=== PATIENT | female | born 2000 | race Caucasian/White ===

== ENCOUNTER 2023-04-09 15:06 | Emergency (ER) | payer MEDICAID, SELFPAY ==
[2023-04-09 15:08] VITALS: BP 90/51; PULSE 70; RESP 20; TEMP 36.2; O2SAT 93; BMI 33.9
--- NOTE | 2023-04-09 15:10 | ED.GENADULT ---
HPI - General Adult General Chief complaint: Chest Pain Stated complaint: chest pain,sob ,33 wks Time Seen by Provider: 04/09/23 16:03 Related Data Allergies Allergy/AdvReac Type Severity Reaction Status Date / Time No Known Allergies Allergy Verified 04/09/23 15:14 [facility] Social History Social History Advance Directives: No Advance Directives Information Provided: No Physical Exam ED Vital Signs: Vital Signs - 24 hr 04/09/23 15:08 Temperature 97.2 F Pulse Rate 70 Respiratory Rate 20 Blood Pressure 90/51 L Pulse Oximetry 93 Oxygen Delivery Method Room Air BMI result Body Mass Index 33.9 Course Course Course Narrative: RME- 22 year old female presents for evaluation of back pain and chest pain. She is approximately 33 weeks . Pain started last night. OB care is at [facility]. Reevaluation(s) Reevaluation #1: Presented to the patient's room multiple times however the patient was not in the room. Discussed with the charge nurse who informed me that the patient has left without completing treatment. Time: 16:45 Discharge Plan Discharge Clinical Impression: Qualifiers: Weeks of gestation: unspecified Qualified Code(s): Z34.90 - Encounter for supervision of normal , unspecified, unspecified trimester Patient Disposition: Left W/O Completing Treatment Discharge Date/Time: 04/09/23 16:39
--- NOTE | 2023-04-09 15:15 | ECG_ITS ---
Test Reason : CHEST PAIN Blood Pressure : / mmHG Vent. Rate : 070 BPM Atrial Rate : 070 BPM P-R Int : 138 ms QRS Dur : 086 ms QT Int : 388 ms P-R-T Axes : 051 -13 012 degrees QTc Int : 419 ms Normal sinus rhythm with sinus arrhythmia Minimal voltage criteria for LVH, may be normal variant ( R in aVL ) Borderline ECG No previous ECGs available Referred By: Jared Hebert Electronically Signed By:MATEO POWERS
== END 2023-04-09 16:39 | disposition left against medical advice (07) ==
PROVIDERS: Emergency Provider Emergency Medicine
DX: O26.893 Other specified pregnancy related conditions, third trimester (principal); R07.9 Chest pain, unspecified; R06.02 Shortness of breath; Z3A.33 33 weeks gestation of pregnancy
CPT/HCPCS: 93005; 99283

== ENCOUNTER 2023-04-09 18:38 | Emergency (ER) | payer MEDICAID, SELFPAY ==
[2023-04-09 18:42] VITALS: BP 111/69; PULSE 91; RESP 16; TEMP 36.6; O2SAT 97; BMI 32.4
--- NOTE | 2023-04-09 18:43 | ED_ITS ---
HPI - General Adult General Chief complaint: Chest Pain Stated complaint: abd back pain 33 wks. ..here today Time Seen by Provider: 04/09/23 19:16 Source: patient Limitations: no limitations History of Present Illness HPI narrative: 22-year-old female, , 33 weeks gestation, with an EDC of May 27, presents for evaluation of approximately 24 hours of back and epigastric pain. Patient states symptoms have been relatively constant and she had several episodes of nausea and vomiting earlier this afternoon. She has tried a warm bath as well as Tylenol without any relief. She reports positive movement. She denies any abdominal pain or cramping. She denies any fevers or chills. No vaginal discharge bleeding or spotting. No urinary symptoms. Of note, the patient actually presents the emergency department earlier today however left as she did not wish to wait. She ultimately presented to be stay but did not want to wait there any longer and therefore returned to the whole emergency department. She denies any trauma. Patient is followed at [facility] for [employer]. Patient also reports that she has a ?marginal placenta?. Related Data Allergies Allergy/AdvReac Type Severity Reaction Status Date / Time No Known Allergies Allergy Verified 04/09/23 15:14 Review of Systems 2 Constitutional: Constitutional: Denies chills, Denies fever(s) and Denies headache(s) Eyes: Eyes: Denies change in vision and Denies other (No redness.) ENT: Denies headache(s), Denies nasal congestion, Denies nasal discharge, Denies neck pain and Denies sore throat Cardiovascular: Cardiovascular: Denies chest pain, Denies palpitations, Denies dyspnea, Denies dyspnea on exertion and Denies orthopnea Respiratory: Respiratory: Denies cough, Denies dyspnea and Denies dyspnea on exertion Gastrointestinal: Gastrointestinal: Denies abdominal pain, Denies melena, Denies hematochezia, Denies diarrhea, Reports nausea and Reports vomiting Genitourinary: Genitourinary: Denies dysuria and Denies urinary urgency Musculoskeletal: Musculoskeletal: Denies back pain, Denies muscle weakness, Denies neck pain and Denies numbness Integumentary/Breasts: Skin/Breast: Denies rash Neurologic: Denies headache(s), Denies focal weakness and Denies numbness Psychiatric: Psychiatric: Denies depression Endocrine: Endocrine: Denies palpitations PMFSH Social History Social History Smoked in Last 30 Days: No Use of substances other than those prescribed or required for medical reasons: No Advance Directives: No Advance Directives Information Provided: No Patient : Yes Physical Exam ED Vital Signs: Vital Signs - 24 hr 04/09/23 18:42 04/09/23 22:13 Temperature 97.8 F Pulse Rate 91 86 Respiratory Rate 16 16 Blood Pressure 111/69 125/73 Pulse Oximetry 97 99 Oxygen Delivery Method Room Air Room Air BMI result Body Mass Index 32.4 Const Orientation/consciousness: patient oriented x3 Resp Auscultation: clear to auscultation bilaterally Cardio Rate: regular rate Rhythm: regular rhythm GI Other: Abdomen is gravid and soft. There is mild tenderness in the epigastric region. No CVAT. No peritoneal signs. Neuro General: patient oriented x3 Extrem Other: No calf tenderness or pedal edema. Course Course Course Narrative: RME- 22 year old female presents for evaluation of back pain and chest pain. She checked into the ER a few hours ago but ultimately left without being seen after her EKG, but before her labs. She reports that after going home she took Tylenol 500 mg and then vomited several times. She is approximately 33 weeks . Her OB is at [facility] Reevaluation(s) Reevaluation #1: Reassessment at this time, the patient is reporting that she is feeling better. She is actually requesting something the eat. She has not had any further nausea or vomiting. Patient does report some mild epigastric discomfort. The back pain has resolved. Again she has not had any vaginal discharge bleeding or spotting. Bedside ultrasound to the right upper quadrant with attention to the gallbladder, does not reveal any pericholecystic fluid. Gallbladder wall is measuring 0.14 cm. No contents in the gallbladder noted. No sonographic Meredith's. Subxiphoid view of the heart does not reveal any pericardial effusion. heart rate noted in the 130s with positive movement. At this time the patient is requesting something the eat. She is also requesting discharge home. [facility] Reviewed all labs with the patient. Reviewed plan with Dr. Urrutia who agrees. Reviewed all discharge instructions. Explicit instructions given to the patient regarding any worsening of symptoms, 12 any chest pain, shortness of breath, return of nausea vomiting or any other concerns to return immediately to the emergency department. Patient also instructed to follow-up with her OBGYN 1st thing Tuesday morning. No evidence of infection on labs or exam. No evidence of cholecystitis or pancreatitis. Suspect possible GI etiology. Low probability for cardiopulmonary etiology given that patient's vitals are stable and no additional signs or symptoms. At time of discharge, patient reported to nurse that she was having chest pain. EKG was performed, no acute ischemic process. Vitals are stable. Symptoms resolved on their own. Patient is requesting discharge home. I had discussed with the patient regarding possible dyspepsia. She will try bland diet for medications. No further questions at this time. Time: 21:41 Medications Administered Discontinued Medications Generic Name Dose Route Start Last Admin Trade Name Freq PRN Reason Stop Dose Admin Sodium Chloride 1,000 mls @ 999 mls/hr 04/09/23 20:30 04/09/23 22:21 Ns IV 04/09/23 21:30 Infused .Q1H1M ADOLPH Infusion Metoclopramide HCl 10 mg 04/09/23 20:20 04/09/23 20:57 Metoclopramide Hcl 10 Mg/2 Ml Vial IVPUSH 04/09/23 20:21 10 mg ONCE ONE Administration Medical Decision Making Medical Decision Making [facility] Narrative: 22-year-old female complaining of epigastric and back pain. Associated nausea vomiting. Thirty-three weeks gestation, no vaginal symptoms. Positive movement. Check labs, IV fluids and antiemetics. No sick contacts or recent travel. No trauma. Consideration for GI source. Differential Diagnosis Differential Diagnoses: The differential diagnosis associated with the presentation includes distress Dyspepsia Cholecystitis Pyelonephritis Pancreatitis Lab Data [facility] Lab Attestation statement: I reviewed the patient's lab results. 04/09/23 19:02 04/09/23 19:02 Labs: Lab Results 04/09/23 04/09/23 Range/Units 19:02 21:00 WBC 14.7 H (4.8-10.8) X10*3/uL RBC 4.25 (4.20-5.50) X10*6/uL Hgb 12.7 (12.0-16.0) g/dl Hct 36.2 L (37.0-47.0) % MCV 85.2 (80.0-98.0) fL MCH 29.9 (27.0-33.0) pg MCHC 35.1 H (31.0-35.0) g/dl RDW 12.1 (11.0-16.0) % Plt Count 303 (160-400) X10*3/uL MPV 9.6 (9.4-12.3) fL Immature Gran % (Auto) 0.7 H (0.0-0.4) % Neut % (Auto) 80.8 H (45-73) % Lymph % (Auto) 13.4 L (20-40) % [place] % (Auto) 4.4 (2-11) % Eos % (Auto) 0.5 (0-4) % Baso % (Auto) 0.2 (0-2) % Lymph # (Auto) 2.0 (1.2-4.9) X10*3/uL [place] # (Auto) 0.6 (0.1-1.2) X10*3/uL Eos # (Auto) 0.1 (0.0-0.4) X10*3/uL Baso # (Auto) 0.0 (0.0-0.2) X10*3/uL Abs Immat Gran (auto) 0.11 H (0.00-0.03) X10*3/uL Absolute Neuts (auto) 11.9 H (2.0-8.3) x10*3/uL Absolute Nucleated RBC 0.000 (0.0-0.012) X10*3/uL Nucleated RBC % (auto) 0.0 (0.0-0.2) /100WBC PT 11.6 (11.1-13.3) SEC INR 1.0 (0.9-1.1) Sodium 138 (135-145) mmol/L Potassium 4.1 (3.3-5.1) mmol/L Chloride 105 (96-108) mmol/L Carbon Dioxide 22 (22-29) mmol/L Anion Gap 15 (12-20) BUN 9 (9-16) mg/dL Creatinine 0.62 (0.5-1.4) mg/dL Estim Creat Clear Calc 142.1 Estimated GFR > 60 Random Glucose 96 (60-115) mg/dL Calcium 9.5 (8.4-10.2) mg/dL Total Bilirubin 0.2 (0.0-1.0) mg/dL AST 13 (5-31) U/L ALT 7 (0-31) U/L Alkaline Phosphatase 117 (39-117) U/L Troponin I High Sens < 2.7 (<3.5-17.0) ng/L Total Protein 7.2 (6.5-8.0) g/dL Albumin 3.6 (3.5-5.0) g/dL Lipase 27 (8-78) U/L Urine Color Yellow Urine Appearance Clear Urine pH 7.0 (5.0-9.0) Ur Specific [place] 1.020 (1.005-1.025) Urine Protein Negative (Neg-Trace) mg/dL Urine Glucose (UA) Negative (Negative) mg/dL Urine Ketones Negative (Negative) mg/dL Urine Blood Negative (Negative) Urine Nitrite Negative (Negative) Ur Leukocyte Esterase Negative (Negative) Urine RBC 0-2 (0-2) /HPF Urine WBC 0-5 (0-5) /HPF Ur Squamous Epith Cells 6-10 (0-2) /HPF Urine Bacteria None Seen (None Seen) Hyaline Casts 0-2 (0-2) /LPF Independent Interpretation I performed an independent interpretation of an: EKG and Ultrasound Interpretation: Bedside ultrasound noted above EKG at 2215, sinus at 72 beats per minute. No acute ischemic changes. No STEMI. Prescription Management I considered prescription management with: Pain Medication and Other (Antiemetics) Discharge Plan Discharge Clinical Impression: Acute epigastric pain Qualifiers: Weeks of gestation: unspecified Qualified Code(s): Z34.90 - Encounter for supervision of normal , unspecified, unspecified trimester Patient Disposition: Home, Self-Care Instructions: Abdominal Pain (ED) Additional Instructions: Clear liquids. [place] diet. Gradually advanced. Contact your OBGYN 1st thing Tuesday morning for repeat evaluation. Watch for any worsening of symptoms, severe pain, fevers, persistent nausea vomiting or any other concerns or return immediately to the emergency department. Interventions: ED Discharge Assessment Last Done: 04/09/23 22:47 Discharge Date/Time: 04/09/23 22:47
[2023-04-09 19:08] LABS: MANUAL DIFF FLAG NO
[2023-04-09 19:09] LABS: Basophils Percent Auto 0.2 % (0-2); Eosinophils Absolute Auto 0.1 X10*3/uL (0.0-0.4); Eosinophils Percent Auto 0.5 % (0-4); Hematocrit 36.2 % (37.0-47.0); Hemoglobin 12.7 g/dl (12.0-16.0); Imm Gran Abs Auto 0.11 X10*3/uL (0.00-0.03); Imm Gran Pct Auto 0.7 % (0.0-0.4); Lymphocytes Percent Auto 13.4 % (20-40); Mean Corpuscular HGB Conc 35.1 g/dl (31.0-35.0); Mean Corpuscular Hemoglobin 29.9 pg (27.0-33.0); Mean Corpuscular Volume 85.2 fL (80.0-98.0); Mean Platelet Volume 9.6 fL (9.4-12.3); Monocytes Absolute Auto 0.6 X10*3/uL (0.1-1.2); Monocytes Percent Auto 4.4 % (2-11); Neutrophils Absolute Auto 11.9 x10*3/uL (2.0-8.3); Neutrophils Percent Auto 80.8 % (45-73); Platelet Count 303 X10*3/uL (160-400); Red Blood Count 4.25 X10*6/uL (4.20-5.50); Red Cell Distribution Width 12.1 % (11.0-16.0); White Blood Count 14.7 X10*3/uL (4.8-10.8)
[2023-04-09 19:16] LABS: Prothrombin Time 11.6 SEC (11.1-13.3)
[2023-04-09 19:23] LABS: Alanine Aminotransferase 7 U/L (0-31); Albumin Level 3.6 g/dL (3.5-5.0); Alkaline Phosphatase 117 U/L (39-117); Anion Gap 15 (12-20); Aspartate Amino Transferase 13 U/L (5-31); Bilirubin Total 0.2 mg/dL (0.0-1.0); Blood Urea Nitrogen 9 mg/dL (9-16); Calcium 9.5 mg/dL (8.4-10.2); Carbon Dioxide 22 mmol/L (22-29); Chloride 105 mmol/L (96-108); Creatinine Clr Calc Pharmacy 142.1; Estimated Glomerular Filt Rate > 60; Glucose Random 96 mg/dL (60-115); Lipase 27 U/L (8-78); Potassium 4.1 mmol/L (3.3-5.1); Sodium 138 mmol/L (135-145); Total Protein 7.2 g/dL (6.5-8.0)
[2023-04-09 19:30] LABS: Troponin-I High Sensitivity < 2.7 ng/L (<3.5-17.0)
[2023-04-09 19:57] VITALS: PULSE 76
[2023-04-09] MEDS: 0.9 % Sodium Chloride 1,000 ML 999 ML IV (20:56)
[2023-04-09] MEDS: Metoclopramide HCl 10 MG/2 ML VIAL IVPUSH (20:57)
[2023-04-09 21:11] LABS: Appearance Urine Clear; Color Urine Yellow; Glucose Urine UA Negative (Negative); Leukocyte Esterase Urine Negative (Negative); Nitrite Urine Negative (Negative); Urine Blood Negative (Negative); Urine Ketones Negative (Negative); Urine Protein Negative (Neg-Trace)
[2023-04-09 21:16] LABS: Bacteria Urine None Seen (None Seen); Hyaline Casts Urine 0-2 /LPF (0-2); RBC Urine 0-2 /HPF (0-2); WBC Urine 0-5 /HPF (0-5)
--- NOTE | 2023-04-09 22:11 | ECG_ITS ---
Test Reason : WEAKNESS Blood Pressure : / mmHG Vent. Rate : 072 BPM Atrial Rate : 072 BPM P-R Int : 152 ms QRS Dur : 088 ms QT Int : 414 ms P-R-T Axes : 045 -12 034 degrees QTc Int : 453 ms Normal sinus rhythm Normal ECG When compared with ECG of 09-APR-2023 15:19, No significant change was found Referred By: Michael Campbell Electronically Signed By:MATEO POWERS
--- NOTE | 2023-04-09 22:12 | PC.NURSE ---
Pt up for discharge, reporting 8/10 chest pain. MD aware, EKG being obtained and repeat vitals.
[2023-04-09 22:13] VITALS: BP 125/73; PULSE 86; RESP 16; O2SAT 99
== END 2023-04-09 22:47 | disposition home or self-care (01) ==
PROVIDERS: Physician Assistant; Emergency Provider Emergency Medicine
DX: O26.893 Other specified pregnancy related conditions, third trimester (principal); R10.13 Epigastric pain; Z3A.33 33 weeks gestation of pregnancy
CPT/HCPCS: 36415; 80053; 81001; 83690; 84484; 85025; 85610; 93005; 96361; 96374; 99284; 99285; J2765

== ENCOUNTER 2023-06-25 12:31 | Emergency (ER) | payer MEDICAID, SELFPAY ==
--- NOTE | 2023-06-25 | ECG_ITS ---
Test Reason : CHEST PAIN Blood Pressure : / mmHG Vent. Rate : 070 BPM Atrial Rate : 070 BPM P-R Int : 148 ms QRS Dur : 092 ms QT Int : 406 ms P-R-T Axes : 044 -13 034 degrees QTc Int : 438 ms Sinus rhythm with marked sinus arrhythmia Otherwise normal ECG When compared with ECG of 09-APR-2023 22:15, No significant change was found Referred By: Generic ED Physician Electronically Signed By:Jt Benítez
[2023-06-25 12:51] VITALS: BP 115/73; PULSE 73; RESP 18; TEMP 36.1; O2SAT 96; BMI 30.2
[2023-06-25 13:01] LABS: MANUAL DIFF FLAG NO
[2023-06-25 13:05] LABS: Appearance Urine Clear; Basophils Percent Auto 0.2 % (0-2); Color Urine Yellow; Eosinophils Absolute Auto 0.2 X10*3/uL (0.0-0.4); Eosinophils Percent Auto 2.7 % (0-4); Glucose Urine UA Negative (Negative); Hematocrit 35.8 % (37.0-47.0); Hemoglobin 11.8 g/dl (12.0-16.0); Imm Gran Abs Auto 0.03 X10*3/uL (0.00-0.03); Imm Gran Pct Auto 0.3 % (0.0-0.4); Leukocyte Esterase Urine Small (1+) (Negative); Lymphocytes Absolute Auto 2.7 X10*3/uL (1.2-4.9); Lymphocytes Percent Auto 30.6 % (20-40); Mean Corpuscular Hemoglobin 27.7 pg (27.0-33.0); Mean Platelet Volume 9.1 fL (9.4-12.3); Monocytes Absolute Auto 0.5 X10*3/uL (0.1-1.2); Monocytes Percent Auto 5.3 % (2-11); Neutrophils Absolute Auto 5.4 x10*3/uL (2.0-8.3); Neutrophils Percent Auto 60.9 % (45-73); Nitrite Urine Negative (Negative); Platelet Count 450 X10*3/uL (160-400); Red Blood Count 4.26 X10*6/uL (4.20-5.50); Red Cell Distribution Width 12.4 % (11.0-16.0); Specific Gravity - Urine 1.025 (1.005-1.025); UMIC TRIGGER UACC YES; Urine Blood Trace (Negative); Urine Ketones Trace mg/dL (Negative); Urine Protein Negative (Neg-Trace); White Blood Count 8.9 X10*3/uL (4.8-10.8)
--- NOTE | 2023-06-25 13:13 | ED_ITS ---
HPI - Chest Pain General Chief Complaint: Chest Pain Stated Complaint: chest pain/ fever? Related Data Allergies Allergy/AdvReac Type Severity Reaction Status Date / Time No Known Allergies Allergy Verified 06/25/23 12:51 [facility] Social History Social History Advance Directives on File: No Physical Exam 2 Vital Signs: Vital Signs: Last Vital Signs Temp 97.0 F 06/25/23 12:51 Pulse 73 06/25/23 12:51 Resp 18 06/25/23 12:51 BP 115/73 06/25/23 12:51 Pulse Ox 96 06/25/23 12:51 O2 Del Method Room Air 06/25/23 12:51 BMI result Body Mass Index 30.2 Course Course Course Narrative: RME- 23 year old female presents for evaluation of chest pain and back pain. She is 3 weeks post . Plan for ekg, chest x-ray, labs Medical Decision Making Lab Data 06/25/23 12:54 06/25/23 12:54 Labs: Lab Results 06/25/23 Range/Units 12:54 WBC 8.9 (4.8-10.8) X10*3/uL RBC 4.26 (4.20-5.50) X10*6/uL Hgb 11.8 L (12.0-16.0) g/dl Hct 35.8 L (37.0-47.0) % MCV 84.0 (80.0-98.0) fL MCH 27.7 (27.0-33.0) pg MCHC 33.0 (31.0-35.0) g/dl RDW 12.4 (11.0-16.0) % Plt Count 450 H D (160-400) X10*3/uL MPV 9.1 L (9.4-12.3) fL Immature Gran % (Auto) 0.3 (0.0-0.4) % Neut % (Auto) 60.9 (45-73) % Lymph % (Auto) 30.6 (20-40) % [place] % (Auto) 5.3 (2-11) % Eos % (Auto) 2.7 (0-4) % Baso % (Auto) 0.2 (0-2) % Lymph # (Auto) 2.7 (1.2-4.9) X10*3/uL [place] # (Auto) 0.5 (0.1-1.2) X10*3/uL Eos # (Auto) 0.2 (0.0-0.4) X10*3/uL Baso # (Auto) 0.0 (0.0-0.2) X10*3/uL Abs Immat Gran (auto) 0.03 (0.00-0.03) X10*3/uL Absolute Neuts (auto) 5.4 (2.0-8.3) x10*3/uL Absolute Nucleated RBC 0.000 (0.0-0.012) X10*3/uL Nucleated RBC % (auto) 0.0 (0.0-0.2) /100WBC PT 12.5 (11.1-13.3) SEC INR 1.0 (0.9-1.1) APTT 34.9 (26.0-36.4) SEC Sodium 141 (135-145) mmol/L Potassium 3.7 (3.3-5.1) mmol/L Chloride 110 H (96-108) mmol/L Carbon Dioxide 22 (22-29) mmol/L Anion Gap 13 (12-20) BUN 15 (9-16) mg/dL Creatinine 0.79 (0.5-1.4) mg/dL Estim Creat Clear Calc 106.7 Estimated GFR > 60 Random Glucose 93 (60-115) mg/dL Calcium 9.1 (8.4-10.2) mg/dL Total Bilirubin 0.7 (0.0-1.0) mg/dL AST 25 (5-31) U/L ALT 15 (0-31) U/L Alkaline Phosphatase 132 H (39-117) U/L Troponin I High Sens < 2.7 (<3.5-17.0) ng/L B-Natriuretic Peptide 40 (<100) pg/mL Total Protein 7.4 (6.5-8.0) g/dL Albumin 4.0 (3.5-5.0) g/dL Lipase 24 (8-78) U/L Urine Color Yellow Urine Appearance Clear Urine pH 6.0 (5.0-9.0) Ur Specific [employer] 1.025 (1.005-1.025) Urine Protein Negative (Neg-Trace) mg/dL Urine Glucose (UA) Negative (Negative) mg/dL Urine Ketones Trace (Negative) mg/dL Urine Blood Trace H (Negative) Urine Nitrite Negative (Negative) Ur Leukocyte Esterase Small (1+) H (Negative) Urine RBC 0-2 (0-2) /HPF Urine WBC 0-5 (0-5) /HPF Ur Squamous Epith Cells 3-5 (0-2) /HPF Urine Bacteria None Seen (None Seen) Hyaline Casts 0-2 (0-2) /LPF Discharge Plan Discharge Clinical Impression: Chest pain Patient Disposition: Left W/O Completing Treatment Discharge Date/Time: 06/25/23 17:22
[2023-06-25 13:20] LABS: Prothrombin Time 12.5 SEC (11.1-13.3)
[2023-06-25 13:21] LABS: Bacteria Urine None Seen (None Seen); Hyaline Casts Urine 0-2 /LPF (0-2); RBC Urine 0-2 /HPF (0-2); UACC Culture Trigger YES; WBC Urine 0-5 /HPF (0-5)
[2023-06-25 13:23] LABS: Partial Thromboplastin Time 34.9 SEC (26.0-36.4)
[2023-06-25 13:48] LABS: Alanine Aminotransferase 15 U/L (0-31); Alkaline Phosphatase 132 U/L (39-117); Anion Gap 13 (12-20); Aspartate Amino Transferase 25 U/L (5-31); Bilirubin Total 0.7 mg/dL (0.0-1.0); Blood Urea Nitrogen 15 mg/dL (9-16); Calcium 9.1 mg/dL (8.4-10.2); Carbon Dioxide 22 mmol/L (22-29); Chloride 110 mmol/L (96-108); Creatinine Clr Calc Pharmacy 106.7; Estimated Glomerular Filt Rate > 60; Glucose Random 93 mg/dL (60-115); Lipase 24 U/L (8-78); Potassium 3.7 mmol/L (3.3-5.1); Sodium 141 mmol/L (135-145); Total Protein 7.4 g/dL (6.5-8.0)
[2023-06-25 13:52] LABS: B Type Natriuretic Peptide 40 pg/mL (<100)
[2023-06-25 13:58] LABS: Troponin-I High Sensitivity < 2.7 ng/L (<3.5-17.0)
--- NOTE | 2023-06-25 14:49 | PC.NURSE ---
CALLED PT'S CELL PHONE TO TELL HER TO RETURN TO ED. NO ANSWER
== END 2023-06-25 17:22 | disposition left against medical advice (07) ==
PROVIDERS: Physician Assistant; Emergency Provider Emergency Medicine
DX: R07.9 Chest pain, unspecified (principal)
CPT/HCPCS: 36415; 80053; 81001; 83690; 83880; 84484; 85025; 85610; 85730; 87086; 93005; 99283

== ENCOUNTER → 2023-06-25 12:40 | Outpatient (BNV) | payer MEDICAID, SELFPAY | PROVIDERS: Emergency Provider Emergency Medicine; Visit Provider Internal Medicine Cardiovascular Disease | DX: R07.9 Chest pain, unspecified (principal) | CPT/HCPCS: 93010 ==

== ENCOUNTER 2023-10-02 12:59 | Emergency (ER) | payer MEDICAID, SELFPAY ==
[2023-10-02 13:08] VITALS: BP 147/96; BP 150/90; PULSE 84; PULSE 90; RESP 18; TEMP 36.4; O2SAT 98; BMI 31.2
--- NOTE | 2023-10-02 13:11 | ED_ITS ---
HPI - General Adult General Chief complaint: Chest Pain Stated complaint: chest pain for 9 months Time Seen by Provider: 10/02/23 13:10 Source: patient and EMS Mode of arrival: EMS Limitations: no limitations History of Present Illness HPI narrative: Patient is a 23 year old assigned female at with a history of chronic epigastric pain presenting to the emergency department today with epigastric pain and right shoulder pain. Patient states that for the last year, ever since delivering her child, she has had epigastric pain that intermittently presents. Patient states that she was also moving recently and now has right shoulder pain. Patient denies any dizziness, lightheadedness, nausea, vomiting, fever, chills, blurry vision, double vision, loss of vision, chest pain, difficulty breathing, shortness of breath, back pain, night sweats, pain with urination, increased urinary frequency, increased urinary urgency, blood in her urine or stool, syncope or a near syncopal episode, bowel incontinence, bladder incontinence, bowel retention, bladder retention, or any other complaints at this time. Relieving factors: none Exacerbating factors: none Treatments prior to arrival: none Related Data Previous Rx's Medication Instructions Recorded cyclobenzaprine 5 mg tablet 5 mg PO TID PRN muscle spasm 7 10/02/23 days #21 tabs omeprazole 20 mg capsule,delayed 20 mg PO DAILY #14 caps 10/02/23 release Allergies Allergy/AdvReac Type Severity Reaction Status Date / Time No Known Allergies Allergy Verified 06/25/23 12:51 Review of Systems Constitutional: Constitutional: Reports no additional constitutional complaints, Denies chills, Denies fever(s) and Denies night sweats Eyes: Eyes: Reports no additional eye complaints, Denies blurry vision, Denies change in vision, Denies diplopia, Denies eye discharge, Denies loss of vision and Denies eye pain ENT: Denies dizziness Cardiovascular: Cardiovascular: Reports no additional cardiovascular complaints, Denies chest pain, Denies lightheadedness, Denies Loss of Consciousness and Denies dyspnea Respiratory: Respiratory: Reports no additional respiratory complaints and Denies dyspnea Gastrointestinal: Gastrointestinal: Reports no additional gastrointestinal complaints, Reports abdominal pain, Denies melena, Denies hematochezia, Denies change in bowel habits and Denies change in stool character Genitourinary: Genitourinary: Denies hematuria, Denies urinary frequency, De nies dysuria, Denies urinary incontinence, Denies urinary hesitancy and Denies urinary urgency Musculoskeletal: Musculoskeletal: Reports no additional musculoskeletal complaints, Denies numbness and Denies tingling Comments: right shoulder pain Neurologic: Denies dizziness, Denies loss of vision, Denies numbness and Denies tingling Psychiatric: Psychiatric: Reports no additional psychiatric complaints Endocrine: Endocrine: Reports no additional endocrine complaints Hematologic/Lymphatic: Hematologic/Lymphatic: Reports no additional hematologic/lymphatic complaints Allergic/Immunologic: Allergic/Immunologic: Reports no additional allergic /immunologic complaints PMFSH Past Medical History Attestation statement: The following information was validated with the patient. Source: old records reviewed and nursing notes reviewed Social History Social History Advance Directives: No Physical Exam ED Vital Signs: Vital Signs - 24 hr 10/02/23 13:08 10/02/23 14:20 10/02/23 14:22 Temperature 97.5 F 98.0 F 97.8 F Pulse Rate 84 71 71 Respiratory Rate 18 20 18 Blood Pressure 147/96 H 130/74 130/74 Pulse Oximetry 98 98 97 Oxygen Delivery Method Room Air Room Air Room Air BMI result Body Mass Index 31.2 Const General: cooperative, no acute distress, alert and awake Nutritional Appearance: well nourished Orientation/consciousness: patient oriented x3 Limitations: no limitations HENMT Head: Yes normal to inspection and Yes atraumatic Ears: hearing grossly normal bilaterally and external ears normal General nose exam: Normal external nose present, no nasal discharge noted and no epistaxis Face and sinus: Yes normal facial exam, No abrasion and No laceration Mouth: Normal oral and palatal mucosa present, no drooling and no muffled voice Eyes General: appearance normal, both eyes and all related structures Periorbital: periorbital findings normal Eyelids: Yes eyelids normal Conjunctivae: conjunctivae normal Pupils: Equal, round and reactive pupils present EOM: EOMs intact bilaterally Neck Neck: Yes normal visual inspection, Yes full ROM and Yes no lymphadenopathy Chest Chest palpation & inspection: normal inspection of the chest Resp Effort & Inspection: normal respiratory effort and able to speak in complete sentences GI Inspection: Yes normal to inspection Palpation (GI): Soft to palpation, not firm, nontender and no guarding Neuro General: patient oriented x3 and moves all extremities Cranial nerves: Yes Equal, round and reactive pupils present Cognition (Neuro): normal cognition Motor exam (neuro): 5/5 motor strength present throughout Sensory Exam: Normal double simultaneous stimulation for sensation Coordination: [id number] test normal Extrem General: Yes normal to inspection, Yes full ROM and Yes capillary refill normal Psych Appearance: grossly normal Mental Status: mental status grossly normal Affect: normal affect Attitude: cooperative Thought process: Normal thought process present Thought content: Normal thought content present Insight: Good insight present (Psych) Medications Administered Discontinued Medications Generic Name Dose Route Start Last Admin Trade Name Ezequiel PRN Reason Stop Dose Admin Cyclobenzaprine HCl 5 mg 10/02/23 13:26 10/02/23 13:33 Cyclobenzaprine Hcl 5 Mg Tablet PO 10/02/23 13:27 5 mg ONCE ONE Administration Omeprazole 20 mg 10/02/23 13:26 10/02/23 13:33 Omeprazole 20 Mg Capsule. PO 10/02/23 13:27 20 mg ONCE ONE Administration Medical Decision Making Medical Decision Making MDM Narrative: Patient is a 23 year old assigned female at with a history of chronic epigastric pain presenting to the emergency department today with epigastric pain and right shoulder pain. Patient's physical exam was unremarkable. Patient's EKG was unremarkable. I explained my physical exam findings as well as all test results to the patient. I answered all questions asked by the patient. I stressed the importance of the patient taking her medication as prescribed. I stressed the importance of the patient following up with her primary care provider and a GI Specialist. I stressed the importance of the patient returning to the emergency department immediately if her symptoms were to worsen or if she were to develop any dizziness, shortness of breath, difficulty breathing, chest pain, blurry vision, loss of vision, nausea, vomiting, abdominal pain, fever, chills, back pain, or any other complaints. Patient verbalized agreement and understanding with this treatment plan and discharge. Differential Diagnosis Differential Diagnoses: The differential diagnosis associated with the presentation includes Epigastric pain GERD Shoulder pain Muscle spasm Muscle strain Admission/Observation Consideration of admission/observation: Escalation of care including admissi on/observation considered Patient would have been admitted to the hospital had her work up had any findings where hospital admission was appropriate and her clinical presentation warranted hospital admission. Independent Interpretation I performed an independent interpretation of an: EKG Interpretation: Vent. Rate: 082 BPM Atrial Rate: 082 BPM P-R Int: 154 ms QRS Dur: 090 ms QT Int: 376 ms P-R-T Axes: 063 -01 037 degrees QTc Int: 439 ms Normal sinus rhythm Normal ECG When compared with ECG of 25-JUN-2023 12:40, No significant change was found DD/ [id number] Independent Historian Clinical information obtained from an independent historian. History obtained from or confirmed by: EMS (EMS provided additional history and confirmed the history provided by the patient) Prescription Management I considered prescription management with: Pain Medication (patient prescribed pain medication) Discharge Plan Discharge Clinical Impression: Chronic epigastric pain, Acute shoulder pain Patient Disposition: Home, Self-Care Instructions: Epigastric Pain (ED), Shoulder Pain (ED) Additional Instructions: Follow up with your primary care provider and a GI specialist. Return to the emergency department immediately if your symptoms worsen or if you develop any dizziness, shortness of breath, difficulty breathing, chest pain, blurry vision, loss of vision, nausea, vomiting, abdominal pain, fever, chills, back pain, or any other complaints. Prescriptions: New cyclobenzaprine 5 mg tablet 5 mg PO TID PRN (Reason: muscle spasm) 7 Days Qty: 21 0RF omeprazole 20 mg capsule,delayed release(DR/EC) 20 mg PO DAILY Qty: 14 0RF Referrals: [facility] G[facility] [Provider Group] (Call to establish and follow up with a GI specialist. ) [facility] Family Medicine [Provider Group] (Call to establish and follow up with a primary care provider. If you already have a primary care provider, please follow up with them.) [facility] Primary Care, Natali [Provider Group] (Call to establish and follow up with a primary care provider. If you already have a primary care provider, please follow up with them.) [facility] Primary Care,Erica [Provider Group] (Call to establish and follow up with a primary care provider. If you already have a primary care provider, please follow up with them.) Stand Alone Forms: Work/School Release Interventions: ED Discharge Assessment Last Done: 10/02/23 14:22 Discharge Date/Time: 10/02/23 14:23 Print Language: Kazakh
--- NOTE | 2023-10-02 13:14 | ECG_ITS ---
Test Reason : CHEST PAIN Blood Pressure : / mmHG Vent. Rate : 082 BPM Atrial Rate : 082 BPM P-R Int : 154 ms QRS Dur : 090 ms QT Int : 376 ms P-R-T Axes : 063 -01 037 degrees QTc Int : 439 ms Normal sinus rhythm Normal ECG When compared with ECG of 25-JUN-2023 12:40, No significant change was found Referred By: Char Abbott Electronically Signed By:Jt Benítez
[2023-10-02] MEDS: Omeprazole 20 MG CAPSULE.DR PO (13:33)
[2023-10-02] MEDS: Cyclobenzaprine HCl 5 MG TABLET PO (13:33)
[2023-10-02 14:20] VITALS: BP 130/74; PULSE 71; RESP 20; TEMP 36.7; O2SAT 98
[2023-10-02 14:22] VITALS: BP 130/74; PULSE 71; RESP 18; TEMP 36.6; O2SAT 97
== END 2023-10-02 14:23 | disposition home or self-care (01) ==
PROVIDERS: Emergency Provider Emergency Medicine
DX: R10.13 Epigastric pain (principal); G89.29 Other chronic pain; M25.511 Pain in right shoulder
CPT/HCPCS: 93005; 99283; 99284

== ENCOUNTER → 2023-10-02 13:14 | Outpatient (BNV) | payer MEDICAID, SELFPAY | PROVIDERS: Emergency Provider Emergency Medicine; Visit Provider Internal Medicine Cardiovascular Disease | DX: R07.9 Chest pain, unspecified (principal) | CPT/HCPCS: 93010 ==

== ENCOUNTER 2025-02-22 11:59 | Outpatient (REF) | payer MEDICAID, SELFPAY ==
--- OUTSIDE RECORDS SUMMARY | 2025-02-22 12:02 | XMS_ITS | Clinical Summary ---
Author Organization [facility] Address [address] [place] [address] Care Team Providers Care Computer Salesperson Retail Name Role Phone Unavailable Primary Care Provider Unavailabl e Source Comments PLEASE NOTE, if this patient is a minor, it may be UNLAWFUL to discuss sensitive information that is contained in these records (such as FAMILY PLANNING, MENTAL HEALTH or SUBSTANCE ABUSE) with the minor patient's parent or other person without the patient's specific authorization.[facility] Immunizations Immunization Administration Dates Next Due Hep B,adult,adjuvanted (HEPLISAV) 08/28/2024,04/2025 MMRV, Live (Proquad) 07/20/2024,02/04/2009 PPD 08/28/2024 TDAP 03/28/2023 Varicella (Varivax), Live Vaccine 08/28/2024,02/2014 Social History Tobacco Use Types Packs/Day Years Used Date Smoking Tobacco: Never Assessed Comments Unknown Sex and Gender Information Value Date Recorded Sex Assigned at Female 08/28/2024 12:07 PM PST Legal Sex Female 12:02 PM PST Gender Identity Female 08/28/2024 12:07 PM PST Sexual Orientation Straight 08/28/2024 12 :07 PM PST Plan of Treatment Health Maintenance Due Date Last Done Comments Anxiety Screening 2002 HPV Screening 2002 Hepatitis C Screening 2002 Pap + HPV 2002 Tobacco Screening 2002 Chlamydia Screening 2015 Gonorrhea Screening 2015 HIV Screening 2017 Imm-HPV (1 - 3-dose series) 2017 Relationship Safety Screening/Counseling 2017 Hypertension Screening (#1) 2020 Cervical Cancer Screening 2023 Pap Smear 2023 [id number] () 03/11/2024 Alcohol and Drug Screen 07/11/2024 Depression Annual Screen 07/11/2024 Imm-Influenza (#1) 2025 Imm-DTaP/Tdap/Td (2 - Td or Tdap) 03/28/2033 023 Imm-Hepatitis B Completed 08/28/2024, 07/20/2024 Imm-Varicella Completed 08/28/2024, 07/11, 01/15/2014, Additional history exists Cervical Ablation/Cold-Knife Conization Discontinued Cervical Cryotherapy Discontinued Colposcopy Discontinued Endometrial Biopsy Discontinued Excision/Leep Discontinued HPV Genotyping Discontinued Vaginal Pap Discontinued Vulvoscopy Discontinued Insurance [address] [employer]
--- OUTSIDE RECORDS SUMMARY | 2025-02-22 12:02 | XMS_ITS | Encounter Summary ---
Author Organization [facility] Address [address] [place] [address] [address] [place] [address] Care Team Providers Care Cadmium Burner Name Role Phone Maggie Young MD Primary Care Provider + Reason for Visit * Reason Onset Date Comments NEW PATIENT 07/14/2023 Encounter Details Date Type Department Care Team (Late st Contact Info) Description 07/14/2023 Telephone [facility] [address] [place] [address] [phone] Shakeel Solis MD [address] [place], [place] [phone] NEW PATIENT Social History Tobacco Use Types Packs/Day Years Used Date Smoking Tobacco: Never Assessed Comments Unknown Sex and Gender Information Value Date Recorded Sex Assigned at Female 03/02/2023 3:08 PM EDT Legal Sex Female 3:05 PM EDT Gender Identity Female 03/02/2023 3:08 PM EDT Sexual Orientation Straight 03/02/2023 3: 08 PM EDT documented as of this encounter Miscellaneous Notes * Telephone Encounter - Jasmeet العراقي - 07/14/2023 2:20 PM EST PT is on [facility] LIST as of 07/01/2023 documented in this encounter Plan of Treatment Upcoming Encounters Date Type Department Care Team (Late st Contact Info) Description 04/30/2025 9:45 AM EDT Office Visit [facility] [address] [place] [phone] Maggie Young MD [address] [place], [place] [phone] documented as of this encounter Visit Diagnoses Not on filedocumented in this encounter Care Teams Cadmium Burner Relationship Specialty Start Date End Date Maggie Young MD [address] [place] [id number] PCP - General Internal Medicine 10/01/24 documented as of this encounter
[2025-02-22 13:29] LABS: MANUAL DIFF FLAG NO
[2025-02-22 13:45] LABS: Hematocrit 39.4 % (37.0-47.0); Hemoglobin 13.5 g/dl (12.0-16.0); Imm Gran Abs Auto 0.02 X10*3/uL (0.00-0.03); Imm Gran Pct Auto 0.3 % (0.0-0.4); Lymphocytes Absolute Auto 2.4 X10*3/uL (1.2-4.9); Mean Corpuscular HGB Conc 34.3 g/dl (31.0-35.0); Mean Corpuscular Hemoglobin 28.8 pg (27.0-33.0); Mean Corpuscular Volume 84.0 fL (80.0-98.0); NRBC Abs Auto 0.000 X10*3/uL (0.0-0.012); NRBC Pct Auto 0.0 /100WBC (0.0-0.2); Platelet Count 276 X10*3/uL (160-400); Red Blood Count 4.69 X10*6/uL (4.20-5.50); White Blood Count 6.4 X10*3/uL (4.8-10.8)
[2025-02-22 13:53] LABS: Alanine Aminotransferase 30 U/L (0-31); Albumin Level 4.2 g/dL (3.5-5.0); Alkaline Phosphatase 93 U/L (39-117); Anion Gap 12 (12-20); Aspartate Amino Transferase 25 U/L (5-31); Blood Urea Nitrogen 11 mg/dL (9-16); Calcium 9.1 mg/dL (8.4-10.2); Carbon Dioxide 25 mmol/L (22-29); Chloride 106 mmol/L (96-108); Cholesterol 160 mg/dL (<200); Estimated Glomerular Filt Rate > 60; HDL Cholesterol 40 mg/dL (>40); Potassium 3.9 mmol/L (3.3-5.1); Sodium 139 mmol/L (135-145); Total Protein 7.1 g/dL (6.5-8.0); Triglycerides 168 mg/dL (<150)
[2025-02-22 14:09] LABS: Syphilis Screen Nonreactive (Nonreactive)
[2025-02-22 14:13] LABS: HBS Num1 > 1000.00 mIU/mL (0-7.99); HBc Num1 0.14 S/CO (0.00-0.79); HBsAGNum1 0.47 S/CO (0.00-0.99); HIV Num 1 0.06 S/CO (0.00-0.99); Hepatitis A Antibody IgM 0.16 Index (0-0.79); Hepatitis B Surface Antigen Negative (Negative); ~HepC Num1 0.14 S/CO (0.00-0.79); ~Hepatitis A Antibody IgM Nonreactive (Nonreactive); ~Hepatitis B Surface Antibody REACTIVE (Nonreactive); ~Hepatitis C Antibody Nonreactive (Nonreactive)
[2025-02-22 14:51] LABS: Reflex LDLD? No
[2025-02-25 13:38] LABS: TS Negative Control Passed; TS Panel A 1; TS Panel B 0; TS Positive Control Passed; TSpotTB Negative (Negative)
== END 2025-02-22 12:00 | disposition home or self-care (01) ==
LOC: HO.HHCL 11:59
PROVIDERS: PCP Internal Medicine; Visit Provider Internal Medicine
DX: Z00.00 Encounter for general adult medical examination without abnormal findings (principal); Z11.59 Encounter for screening for other viral diseases; Z11.1 Encounter for screening for respiratory tuberculosis; Z11.4 Encounter for screening for human immunodeficiency virus [HIV]; O20.9 Hemorrhage in early pregnancy, unspecified
CPT/HCPCS: 36415; 80053; 80061; 84443; 85025; 86481; 86704; 86706; 86709; 86780; 86803; 87340; 87389